=== PATIENT | female | born 1985 | race Caucasian/White ===

== ENCOUNTER 2018-08-29 15:04 | Outpatient (CLI) | payer OTHER ==
[~2018-08-29 15:04] MED LIST: DOCUSATE SODIU100 MG PO; Mylicon 125MG PO; TRAM1TAB98 PO
== END 2018-08-29 15:06 | disposition home or self-care (01) ==
LOC: MAMO-SONO 15:04
DX: N94.0 Mittelschmerz (principal); R10.2 Pelvic and perineal pain; N94.89 Other specified conditions associated with female genital organs and menstrual cycle; N64.59 Other signs and symptoms in breast; N64.89 Other specified disorders of breast

== ENCOUNTER 2021-10-07 13:11 | Outpatient (CLI) | payer OTHER | END 2021-10-07 13:12 | disposition home or self-care (01) | LOC: MAMO-SONO 13:11 | PROVIDERS: ATTEND Obstetrics & Gynecology | DX: N94.0 Mittelschmerz (principal); R10.2 Pelvic and perineal pain; N94.89 Other specified conditions associated with female genital organs and menstrual cycle; N63 Unspecified lump in breast; N64.59 Other signs and symptoms in breast; N64.9 Disorder of breast, unspecified ==

== ENCOUNTER 2022-12-08 10:14 | Outpatient (CLI) | payer OTHER | END 2022-12-08 10:52 | disposition home or self-care (01) | LOC: MAMO-SONO 10:14 | PROVIDERS: ATTEND Obstetrics & Gynecology | DX: N94.0 Mittelschmerz (principal); R10.2 Pelvic and perineal pain; N94.89 Other specified conditions associated with female genital organs and menstrual cycle; N63.0 Unspecified lump in unspecified breast; N64.59 Other signs and symptoms in breast; N64.9 Disorder of breast, unspecified ==

== ENCOUNTER 2024-12-21 07:55 | Outpatient (CLI) | payer OTHER | END 2024-12-21 07:57 | disposition home or self-care (01) | LOC: MAMO-SONO 07:55 | PROVIDERS: ATTEND Obstetrics & Gynecology | DX: N94.0 Mittelschmerz (principal); R10.2 Pelvic and perineal pain; N94.89 Other specified conditions associated with female genital organs and menstrual cycle; N63.0 Unspecified lump in unspecified breast; N64.59 Other signs and symptoms in breast; N64.9 Disorder of breast, unspecified ==